=== PATIENT | female | born 1975 | race American Indian/Alaskan Native ===

== ENCOUNTER 2020-07-23 14:23 | Emergency (ER) | payer SELFPAY ==
[2020-07-23 15:08] VITALS: BP 107/67
== END 2020-07-23 18:06 | disposition home or self-care (01) ==
LOC: ED 14:23
DX: B02.9 Zoster without complications (principal); Z90.89 Acquired absence of other organs; Z79.899 Other long term (current) drug therapy
CPT/HCPCS: 99282